=== PATIENT | male | born 1935 | race Caucasian/White ===

== ENCOUNTER 2016-11-16 03:25 | Emergency (ER) | payer MEDICARE, BC ==
[~2016-11-16] VITALS: Ht 172.7 cm; Wt 86.1 kg
[~2016-11-16 03:25] MED LIST: HYDR25TA PO; IBUP-14 PO; LISI40TA4 PO; METF500T4 PO; [UNRECOGNIZED DRUG - REMARK] PO
[2016-11-16 03:30] VITALS: Ht 172.7 cm; Wt 86.1 kg
--- NOTE | 2016-11-16 03:30 | NUR ---
BLADDER SCAN PT BLADDER SCANNED UPON ARRIVAL - >999ML. DR NOTIFIED.
[2016-11-16] MEDS ORDERED: LIDOCAINE JELLY 2% 30ml TUBE TOP ONE (03:45)
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
[2016-11-16 04:19] LABS: BLOOD, URINE 1+ (NEGATIVE); COLOR,URINE YELLOW (YELLOW); LEUKOCYTE ESTERASE ,URINE NEGATIVE (NEGATIVE); NITRITE,URINE NEGATIVE (NEGATIVE); UROBILINOGEN,URINE 0.2 EU/DL (NORMAL)
[2016-11-16] MEDS ORDERED: RANITIDINE 150 MG TABLET PO ONE (04:30)
[2016-11-16 04:32] LABS: BACTERIA,URINE TRACE (NEGATIVE); RBC,URINE 0-1 /HPF (0-3); WBC,URINE 0-1 /HPF (0-5)
[2016-11-16 05:18] VITALS: BP 129/65; PULSE 81; RESP 16; TEMP 96.9; O2SAT 96
--- NOTE | 2016-11-16 05:18 | NUR ---
DEPART PT GIVEN DI FOR URINARY RETENTION IN MEN, ROBERTS CARE, F/U. PT INSTRUCTED ON ROBERTS CARE AND LEG BAG USE. PT ABLE TO 'TEACH BACK' ROBERTS CARE AND BAG USE. VERBALIZES UNDERSTANDING OF DI. QUESTIONS ASKED/ANSWERED - DENIES FURTHER QUESTIONS/NEEDS AT THIS TIME. CATHETER IN PLACE AND PATENT. LEG BAG IN PLACE. 2000CC ROBERTS BAG SENT WITH PT. PERSONAL BELONGINGS GATHERED. PT REPORTS IMPROVEMENT IN ABDOMINAL PAIN. PT AMBULATED/ESCORTED TO ED EXIT - GAIT STABLE, NO SIGN OF DISTRESS.
== END 2016-11-16 05:18 | disposition home or self-care (01) ==
LOC: ED 03:25
DX: N40.1 Benign prostatic hyperplasia with lower urinary tract symptoms (principal); R33.8 Other retention of urine
CPT/HCPCS: 51703; 81001; 99283; A9270